=== PATIENT | female | born 1975 | race African-American/Black ===

== ENCOUNTER 2016-12-01 18:01 | Inpatient (IN) | payer MEDICAID, OTHER ==
[~2016-12-01] VITALS: Ht 162.6 cm; Wt 70.3 kg
[2016-12-02] MEDS ORDERED: MORPHINE SULFATE 10 MG/ML CPJ SUBCUT ONE (01:30)
[2016-12-02] MEDS ORDERED: SODIUM CHLORIDE 0.9% 1,000 ML IV ONE (02:42)
[2016-12-02] MEDS ORDERED: ASPIRIN 81MG TABLET PO STA (02:42)
[2016-12-02 03:25] LABS: BASOPHILS % 0.8 % (0.0-2.0); EOSINOPHILS % 1.8 % (0.0-5.0); HEMATOCRIT. 39.4 % (36.0-48.0); HEMOGLOBIN. 13.3 g/dL (12.0-16.0); MEAN CORPUSCULAR HEMOGLOBIN 29.3 pg (28.0-32.0); MEAN CORPUSCULAR VOLUME 87.1 fL (81.0-99.0); MEAN PLATELET VOLUME 6.9 fl (7.4-10.4); MONOCYTES % 8.4 % (2.0-8.0); PLATELET 269 x1000/uL (130-400); RED BLOOD CELL COUNT 4.53 mill/uL (4.2-5.4); RED CELL DISTRIBUTION WIDTH 16.1 % (11.6-14.6)
[2016-12-02 03:31] LABS: PARTIAL THROMBOPLASTIN TIME 27.5 sec (24.0-34.0); PROTHROMBIN TIME 10.8 sec
[2016-12-02 03:39] LABS: CARBON DIOXIDE 26 mEq/L (21-32); CHLORIDE 110 mEq/L (98-107)
[2016-12-02 03:40] LABS: TROPONIN I < 0.02 ng/mL (0.00-0.04)
[2016-12-02] MEDS ORDERED: PANTOPRAZOLE SODIUM 40 MG/VIAL IV STA (03:42)
[2016-12-02] MEDS ORDERED: MAGNESIUM/ALUMINUM HYDROXIDE/SIMETHICONE 30ML UDC PO STA (03:42)
[2016-12-02 04:43] LABS: CLARITY URINE CLOUDY (CLEAR); COLOR URINE YELLOW (YELLOW); GLUCOSE URINE NEGATIVE (NEGATIVE); KETONES URINE NEGATIVE (NEGATIVE); LEUKOCYTE ESTERASE URINE NEGATIVE (NEGATIVE); NITRITE URINE NEGATIVE (NEGATIVE); OCCULT BLOOD URINE NEGATIVE (NEGATIVE); PH URINE 6.5 (4.5-8.0); PROTEIN URINE NEGATIVE (NEGATIVE); SPECIFIC GRAVITY URINE 1.022 (1.005-1.030)
[2016-12-02 07:15] LABS: *AMPHETAMINES SCREEN URINE NEGATIVE (NEGATIVE); *BARBITURATES SCREEN URINE NEGATIVE (NEGATIVE); *BENZODIAZEPINES SCREEN URINE NEGATIVE (NEGATIVE); *COCAINE SCREEN URINE NEGATIVE (NEGATIVE); METHADONE URINE SCREEN NEGATIVE (NEGATIVE); PHENCYCLIDINE URINE SCREEN NEGATIVE (NEGATIVE)
[2016-12-02 07:20] LABS: CANNABINOID URINE SCREEN PRESUMTIVE POSITIVE (NEGATIVE); OPIATES URINE SCREEN PRESUMTIVE POSITIVE (NEGATIVE)
[2016-12-02] MEDS ORDERED: GUAIFENESIN 200MG/10ML SUGAR FREE UDC PO PRN (09:30)
[2016-12-02] MEDS ORDERED: CLONIDINE 0.1MG TABLET PO PRN (09:30)
[2016-12-02] MEDS ORDERED: ONDANSETRON HCL 4MG/2ML VIAL IV PRN (09:30)
[2016-12-02] MEDS ORDERED: DOCUSATE SODIUM 100MG CAPSULE PO PRN (09:30)
[2016-12-02] MEDS ORDERED: TRAMADOL 50MG TABLET PO PRN (09:30)
[2016-12-02] MEDS ORDERED: HYDROCODONE/ACETAMINOPHEN 5/325MG TABLET PO PRN (09:30)
[2016-12-02] MEDS ORDERED: IPRATROPIUM/ALBUTEROL 0.5-3(2.5)MG/3ML NEB INH PRN (09:30)
[2016-12-02] MEDS ORDERED: ACETAMINOPHEN 650MG SUPP PR PRN (09:30)
[2016-12-02] MEDS ORDERED: ACETAMINOPHEN 325MG TABLET PO PRN (09:30)
[2016-12-02] MEDS ORDERED: ACETAMINOPHEN 650MG/20.3ML UDC GT PRN (09:30)
[2016-12-02] MEDS ORDERED: MAGNESIUM/ALUMINUM HYDROXIDE/SIMETHICONE 30ML UDC PO PRN (09:30)
[2016-12-02] MEDS ORDERED: NA PHOS,M-B/NA PHOS,DI-BA ENEMA 118ML PR PRN (09:30)
[2016-12-02 12:00] VITALS: BP 112/76
[2016-12-02 13:44] VITALS: BP 112/76
[2016-12-02] MEDS ORDERED: BUPR150T3 PO (13:55)
[2016-12-02] MEDS ORDERED: PANT40TA4 PO (13:55)
[2016-12-02] MEDS ORDERED: CYCL5TAB PO (13:55)
[2016-12-02] MEDS ORDERED: DULO60CA44 PO (13:55)
[2016-12-02] MEDS ORDERED: MONT5TAB11 PO (13:55)
[2016-12-02] MEDS ORDERED: TOPI100T9 PO (13:55)
[2016-12-02] MEDS: SODIUM CHLORIDE 0.9% INJ 3ML FLUSH IVF SCH ×2 (14:12→22:09)
[2016-12-02] MEDS: ENOXAPARIN 40MG/0.4ML SYR SUBCUT SCH (14:13)
[2016-12-02] MEDS ORDERED: FIOROCET PO (14:22)
[2016-12-02 16:00] VITALS: BP 95/69
[2016-12-02] MEDS: KETOROLAC 30MG/ML VIAL IV PRN ×2 (16:02→22:09)
[2016-12-02 16:59] LABS: CREATINE KINASE 83 IU/L (26-192); TROPONIN I < 0.02 ng/mL (0.00-0.04)
[2016-12-02 20:00] VITALS: BP 119/83
[2016-12-02] MEDS ORDERED: BUPROPION HCL 150MG TABLET XL 24HR PO SCH (23:15)
[2016-12-03] VITALS: BP 110/71
[2016-12-03] MEDS: BUPROPION HCL 150MG SR TABLET PO SCH ×2 (00:44→09:06)
[2016-12-03] MEDS: TOPIRAMATE 100MG TABLET PO SCH ×2 (00:44→09:06)
[2016-12-03 01:59] LABS: CREATINE KINASE 76 IU/L (26-192); TROPONIN I < 0.02 ng/mL (0.00-0.04)
[2016-12-03 04:00] VITALS: BP 109/70
[2016-12-03] MEDS: DIPHENHYDRAMINE 50MG/ML VIAL IV PRN ×2 (05:05→11:51)
[2016-12-03] MEDS: KETOROLAC 30MG/ML VIAL IV PRN ×2 (05:06→11:19)
[2016-12-03] MEDS: SODIUM CHLORIDE 0.9% INJ 3ML FLUSH IVF SCH (05:09)
[2016-12-03 06:51] LABS: EOSINOPHILS % 3.4 % (0.0-5.0); HEMATOCRIT. 41.1 % (36.0-48.0); HEMOGLOBIN. 13.8 g/dL (12.0-16.0); LYMPHOCYTES % 40.9 % (20.0-50.0); MEAN CORPUSCULAR HEMOGLOBIN 29.3 pg (28.0-32.0); MEAN CORPUSCULAR VOLUME 87.3 fL (81.0-99.0); MEAN PLATELET VOLUME 7.3 fl (7.4-10.4); MONOCYTES % 8.6 % (2.0-8.0); NEUTROPHILS % 46.1 % (40.0-76.0); PLATELET 280 x1000/uL (130-400)
[2016-12-03 07:13] LABS: CHLORIDE 108 mEq/L (98-107)
[2016-12-03 07:44] LABS: CARBON DIOXIDE 26 mEq/L (21-32); HDL CHOLESTEROL 77 mg/dL (40-59); LDL CHOLESTEROL 64 mg/dL (5-100)
[2016-12-03 08:00] VITALS: BP 100/60
[2016-12-03] MEDS ORDERED: PANTOPRAZOLE 40MG DR TABLET PO SCH (09:00)
[2016-12-03] MEDS: ENOXAPARIN 40MG/0.4ML SYR SUBCUT SCH (09:06)
[2016-12-03 11:46] VITALS: BP 108/71
[2016-12-03 14:44] VITALS: BP 108/71
[2016-12-03] MEDS ORDERED: MONTELUKAST SODIUM 10MG TABLET PO SCH (17:00)
[2016-12-03] MEDS ORDERED: CYCLOBENZAPRINE 10MG TABLET PO SCH (21:00)
[2016-12-03] MEDS ORDERED: DULOXETINE HCL 60MG DR CAPSULE PO SCH (21:00)
== END 2016-12-03 15:07 | disposition home or self-care (01) | DRG 203 ==
LOC: ER 18:01 → 8WST 12-02 05:21 → ENRESERV 12-02 12:29
PROVIDERS: ADMIT Family Medicine; ATTEND Family Medicine
DX: R07.89 Other chest pain (principal); F17.200 Nicotine dependence, unspecified, uncomplicated; K22.4 Dyskinesia of esophagus; G43.909 Migraine, unspecified, not intractable, without status migrainosus; J45.909 Unspecified asthma, uncomplicated; K21.9 Gastro-esophageal reflux disease without esophagitis; F11.90 Opioid use, unspecified, uncomplicated; F12.90 Cannabis use, unspecified, uncomplicated; S80.02XA Contusion of left knee, initial encounter; M79.7 Fibromyalgia; Y93.55 Activity, bike riding; Z87.11 Personal history of peptic ulcer disease; Z90.49 Acquired absence of other specified parts of digestive tract; Z98.84 Bariatric surgery status; Z98.51 Tubal ligation status; Z88.6 Allergy status to analgesic agent; V87.8XXA Person injured in other specified noncollision transport accidents involving motor vehicle (traffic), initial encounter; Y92.89 Other specified places as the place of occurrence of the external cause; Y99.8 Other external cause status
CPT/HCPCS: 36415; 70450; 71010; 73562; 80053; 80061; 80305; 81001; 82550; 83690; 84484; 85025; 85610; 85730; 93005; 93306; 96365; 96372; 96375; 99285; C9113; J1200; J1650; J1885; J2270; J7030